=== PATIENT | male | born 1970 | race Caucasian/White ===

== ENCOUNTER 2018-09-21 13:40 | Emergency (ER) | payer BC ==
[~2018-09-21] VITALS: Ht 175.3 cm; Wt 84.1 kg
[2018-09-21 13:59] VITALS: Ht 175.3 cm; Wt 84.1 kg
[2018-09-21] MEDS ORDERED: TRAZODONE HCL150 MG PO (14:01)
[2018-09-21] MEDS ORDERED: AMOXICILLIN500 M1 PO (14:02)
[2018-09-21] MEDS ORDERED: PAXIL20 MG PO (14:02)
[2018-09-21] MEDS ORDERED: CLARITIN 10 MG10 MG PO (14:02)
[2018-09-21] MEDS ORDERED: AUGMENTIN 875-11 TAB PO (18:14)
[2018-09-21 18:29] VITALS: BP 124/75
== END 2018-09-21 18:31 | disposition home or self-care (01) ==
LOC: D.ER 13:40
DX: H66.93 Otitis media, unspecified, bilateral (principal)